=== PATIENT | female | born 2005 | race Caucasian/White ===

== ENCOUNTER 2023-01-21 08:49 | Outpatient (CLI) | payer OTHER | END 2023-01-21 08:50 | disposition home or self-care (01) | LOC: CSHULT 08:49 | PROVIDERS: ATTEND Family Medicine | DX: Z34.82 Encounter for supervision of other normal pregnancy, second trimester (principal) | CPT/HCPCS: 76805 ==

== ENCOUNTER 2024-06-17 05:29 | Inpatient (IN) | payer MEDICAID, OTHER, SELFPAY ==
[2024-06-17] MEDS ORDERED: Methylergonovine 0.2 MG/ML VIAL IM PRN (06:03)
[2024-06-17] MEDS ORDERED: Carboprost 250 MCG/ML AMP IM PRN (06:03)
[2024-06-17] MEDS ORDERED: Diphenoxylate HCl/Atropine Tablet PO PRN (06:03)
[2024-06-17] MEDS ORDERED: hydrALAZINE 20 MG/ML VIAL SLOW IVP PRN ×2 (06:03→07:39)
[2024-06-17] MEDS ORDERED: fentaNYL 50 mcg/mL 1 mL Vial SLOW IVP PRN (06:03)
[2024-06-17] MEDS ORDERED: Tranexamic Acid 1,000 MG/10 ML VIAL IVP PRN (06:03)
[2024-06-17] MEDS ORDERED: Promethazine HCl 25 MG/ML VIAL IM PRN ×2 (06:03→07:39)
[2024-06-17] MEDS ORDERED: Ondansetron PF 4 MG/2 ML Vial IVP PRN ×2 (06:03→07:39)
[2024-06-17] MEDS ORDERED: Lidocaine 1% (PF) 30 ML VIAL SC PRN (06:03)
[2024-06-17] MEDS ORDERED: Misoprostol 200 MCG TAB PR PRN (06:03)
[2024-06-17] MEDS ORDERED: Acetaminophen 500 MG TAB PO PRN (06:03)
[2024-06-17] MEDS ORDERED: HYDROcodone/Acetaminophen 5/325 mg Tablet PO PRN (06:03)
[2024-06-17] MEDS ORDERED: Oxytocin 30 units/NS 500 ML 500 ML IV SCH (06:15)
[2024-06-17] MEDS ORDERED: Lactated Ringer's 1,000 ML IV SCH (06:15)
[2024-06-17 06:27] VITALS: BMI 30.9
[2024-06-17] MEDS: Ibuprofen 800 MG TAB PO PRN (06:44)
[2024-06-17 06:56] LABS: Hemoglobin 12.8 g/dL (12.0-15.5); Mean Corpuscular HGB CONC 34.6 g/dL (32.0-36.0); Mean Corpuscular Hemoglobin 31.3 pg (27.0-33.0); Mean Corpuscular Volume 90.5 fL (81.6-98.3); Mean Platelet Volume 10.2 fL (7.4-10.4); Platelet Count 236 10x3/uL (150-450); Red Blood Cell (RBC) Count 4.09 10x6/uL (3.90-5.03); White Blood Cell (WBC) Count 22.5 10x3/uL (3.5-10.5)
[2024-06-17 07:33] LABS: Syphilis Antibody Nonreactive (Nonreactive); Syphilis Antibody Index 0.02 S/CO (<1.00 Non-Reactive)
[2024-06-17] MEDS ORDERED: Milk Of Magnesia 30 ML UDCUP PO PRN (07:39)
[2024-06-17] MEDS ORDERED: Boostrix 0.5 ML (Tdap) VIAL (>/=7 yrs of age) IM ONE (07:39)
[2024-06-17] MEDS ORDERED: diphenhydrAMINE 25 MG CAP PO PRN (07:39)
[2024-06-17] MEDS ORDERED: Bisacodyl 10 MG SUPP PR PRN (07:39)
[2024-06-17 07:41] LABS: HBsAg Index 0.16 S/CO (0-0.99); Hep B Surf Ag - L&D Non-Reactive S/CO (NonReactive)
[2024-06-17] MEDS: Oxytocin 30 units/NS 500 ML 500 ML ONE (09:13)
[2024-06-17] MEDS: Prenatal Vitamin 1 TAB PO SCH (09:14)
[2024-06-17] MEDS: Ferrous Sulfate 325 MG TAB PO SCH (09:14)
[2024-06-17] MEDS: Docusate 100 MG CAP PO SCH (09:14)
[2024-06-17] MEDS: Ibuprofen 800 MG TAB PO SCH (14:19)
[2024-06-17] MEDS: HYDROcodone/Acetaminophen 5/325 mg Tablet PO PRN (17:38)
[2024-06-18 19:09] LABS: HIV (1/2) Antibody/Antigen Non-Reactive (NonReactive); HIV 1/2 INDEX 0.06 S/CO (<1.00)
[2024-06-19 08:14] VITALS: BP 112/68; TEMP 97.8
== END 2024-06-19 12:30 | disposition home or self-care (01) | DRG 807 ==
LOC: CSHLD/OP 05:29 → CSHLD 06:28 → CSHPP 08:10
PROVIDERS: ADMIT Family Medicine; ATTEND Family Medicine
PROC: 10E0XZZ Delivery of Products of Conception, External Approach (ICD-10-PCS; principal; 2024-06-17)
PROC: 10907ZC Drainage of Amniotic Fluid, Therapeutic from Products of Conception, Via Natural or Artificial Opening (ICD-10-PCS; 2024-06-17)
DX: O60.14X0 Preterm labor third trimester with preterm delivery third trimester, not applicable or unspecified (principal); Z37.0 Single live birth; Z3A.36 36 weeks gestation of pregnancy
CPT/HCPCS: 36415; 85027; 86780; 86850; 86900; 86901; 87340; 87389; 88307; 99285; J2590